=== PATIENT | male | born 1945 | race Caucasian/White ===

== ENCOUNTER 2017-02-23 08:55 | Day surgery (SDC) | payer MEDICARE, OTHER ==
[~2017-02-23] VITALS: Ht 185.4 cm; Wt 101.0 kg
--- NOTE | 2017-02-24 08:19 | OR ---
ADMIT: 02/23/2017 RM/LOC: [facility] MR#: [id number] [address] [place] [address] Operative/Delivery Room Report SEX: M AGE: 71 : 1945 SURGERY DATE: 02/23/2017 SURGEON: Nyla Alvarez MD COSMETIC SALES CONSULTANT: None. PREPROCEDURE DIAGNOSES: 1. Right sacroiliac joint dysfunction. 2. Low back pain. POSTPROCEDURE DIAGNOSES: 1. Right sacroiliac joint dysfunction. 2. Low back pain. PROCEDURE PERFORMED: Right sacroiliac joint injection. INDICATIONS FOR PROCEDURE: The patient is a pleasant gentleman with a history of chronic right-sided lower back pain secondary to above-mentioned diagnoses comes here for planned right-sided injection. ANESTHESIA: Local without sedation. ESTIMATED BLOOD LOSS: Zero. COMPLICATIONS: None immediately evident. DESCRIPTION OF PROCEDURE: After the patient was seen in the preoperative area, vitals signs were taken. Prior to the procedure, the risks, benefits, and alternative therapies were discussed at length. Patient consent was obtained and updated. The patient was taken to the fluoroscopy suite and placed on the fluoroscopy table in the prone position. Pressure points were padded to comfort, monitors applied, and a timeout performed. C-arm was brought in to identify the right SI joint. Lidocaine plain 1%, approximately 2 mL, was used to anesthetize the skin and underlying ADMIT: 02/23/2017 RM/LOC: [facility] MR#: [id number] [address] [place] [address] Operative/Delivery Room Report SEX: M AGE: 71 : 1945 subcutaneous tissue. A 3.5-inch 22-gauge curved-tip needle was then advanced through the anesthetized skin and placed inside the inferior portion of the SI joint. Isovue-300 was injected into the SI joint and showed good spread into the SI joint. After correct placement was confirmed, 5 mL of 0.25% Marcaine and 80 mg of methylprednisolone were injected. The patient tolerated the procedure well without any complications. The patient was then brought to PACU where he recovered nicely. PLAN: The patient was examined after 20 minutes and had 60% reduction of pain. Discharge instructions were given, followup scheduled. 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 Nyla Alvarez MD/ ashkan JOB #: [id number] CC: Nyla Alvarez, Attending Physician Brian Chavez, Family Physician
== END 2017-02-23 10:25 | disposition home or self-care (01) ==
LOC: SSS 08:55
DX: G89.29 Other chronic pain (principal); M53.3 Sacrococcygeal disorders, not elsewhere classified; M54.16 Radiculopathy, lumbar region; Z88.8 Allergy status to other drugs, medicaments and biological substances; E11.9 Type 2 diabetes mellitus without complications; I10 Essential (primary) hypertension; M16.9 Osteoarthritis of hip, unspecified; E78.5 Hyperlipidemia, unspecified; Z98.890 Other specified postprocedural states; Z90.49 Acquired absence of other specified parts of digestive tract; Z96.649 Presence of unspecified artificial hip joint